=== PATIENT | male | born 1995 | race Caucasian/White ===

== ENCOUNTER 2021-12-03 18:51 | Emergency (ER) | payer BC, SELFPAY ==
--- NOTE | 2021-12-03 18:45 | DI.CT_ITS ---
Exam(s) CT HEAD FACIAL WO EXAM: CT HEAD FACIAL WO CLINICAL HISTORY: Fall, Nasal injury, Near syncope. TECHNIQUE: Imaging Protocol: Axial computed tomography images with coronal and sagittal reformatted images were created and reviewed COMPARISON: No exams were available for comparison FINDINGS: CT Head: Ventricles and Extra axial spaces: Normal in size and morphology for the patient's age. Hemorrhage: None. Cerebral parenchyma: Normal. Midline shift: None. Brainstem/Cerebellum: Normal. Calvarium: Normal. Visualized Paranasal sinuses/Mastoids: Minimal mucous retention cysts right sphenoid and left frontal sinus. Soft Tissues: Unremarkable. CT Face: Facial Bones: Minimal fracture of the right anterior nasal bone. No additional facial fractures. Sinuses and Mastoids: Minimal mucous retention cysts right sphenoid and left frontal sinus. Globes, extraocular muscles, optic nerves and retrobulbar fat: Normal. Upper aerodigestive tract: Normal. Mandible and bilateral temporomandibular joints: Normal. Soft tissues: Normal. IMPRESSION: 1. No acute intracranial process. 2. Right nasal fracture. RADIATION DOSE DELIVERED: 1,993.33mGy.cm Total DLP DATA REPOSITORY: All CT scans at this facility are submitted to the National Radiology Data Registry (NRDR) Dose Index Registry (DIR) with the [employer] (A[employer]). RADIATION OPTIMIZATION: All CT scans at this facility use at least one of these dose optimization te chniques: automated exposure control; mA and/or kV adjustment per patient size (includes targeted exa ms where dose is matched to clinical indication); or iterative reconstruction.
[2021-12-03 18:48] VITALS: BP 116/78; PULSE 67; RESP 14; TEMP 36.3; O2SAT 98
--- NOTE | 2021-12-03 19:00 | W.ED.GENAD ---
Discharge Plan Disposition Patient Disposition: HOME Condition: Stable Discharge Details Clinical Impression: Fracture of nasal bone, Fall (on)(from) sidewalk curb, initial encounter, Head injury Primary Care Provider: Bill Hurtado ED Provider: Emily Snyder Home Meds and New Rx's Prescriptions: Continued loratadine [Claritin] 10 mg tablet 10 mg PO DAILY PRN Label Comments: seasonal zinc 50 mg tablet 50 mg PO DAILY PRN Label Comments: just occassional cyanocobalamin (vitamin B-12) [Vitamin B-12] 1,000 mcg Tablet PO DAILY Discharge Instructions Instructions: Nasal Fracture (ED), Head Injury (ED) Additional Instructions: The CT shows a very small 1-2 mm fracture to the right side of your nose. No evidence of intracranial abnormality or bleeding no other broken bones noted at this time. Please be careful when blowing your nose. You may follow-up with ear nose and throat in 1 to 2 weeks as needed for further evaluation to discuss treatment options if needed. Usually these will heal on their own with no treatment necessary. Please take Tylenol or Ibuprofen with food every 4-6 hours as needed for pain and swelling. Keep your wounds clean and dry you may cover them with a Band-Aid or similar when out and about. Return to the ER for any signs of infection including purulent nasal drainage, sinus pressure, signs of worsening head injury such as confusion, vomiting or concerns. Follow up with primary care provider in 3-5 days. Return to ED sooner if any worsening or concerns. Increase oral fluids. Stand Alone Forms: School Release, Work Release Referrals: Bill Hurtado DO [Primary Care Provider] - Return if symptoms worsen Ousmane Briseno MD [ [facility] STAFF PHYSICIAN] - 1 week Medical Decision Making 26-year-old male presents to the ER via EMS status post a mechanical fall prior to arrival. Patient reports that he was running tripped on a chain fell forward hitting his face, nose, right knee. No loss of conscious however he did have an episode of becoming clammy, nauseous and near syncope with dizziness after the event. Denies any neck pain he is nontender to C-spine with palpation. Discussed risks and benefits of CT imaging, head injury. Patient was given Tylenol, CT head facial without contrast ordered. Wound care ordered. Zofran initially ordered patient declined at this time. CT shows a minimally displaced 1 to 2 mm right side nasal fracture. No other significant acute abnormalities. Patient was given a Tdap booster, wound care was performed and discussion on head injury and strict return instructions and follow-up care. Patient verbalized understanding. Patient was given a work note school note and all of his questions were answered to the best my ability. He is alert oriented remained hemodynamically stable throughout the remainder of his stay. This text was generated using [employer] dictation system, please disregard any oddities of phrase or misspellings. Imaging Data Radiologic Study: Imaging: CT Scan Radiologist's impression: FINDINGS: Orbital cavities: No significant intraorbital abnormality is identified. Bones/joints: There is fracture of the anterior inferior right nasal bone, with minimal depression of 1- 2 mm. No other significant or displaced facial fracture is identified. Paranasal sinuses: The paranasal sinuses are normally developed and well pneumatized. Retention cyst is noted inferiorly medially within the left frontal sinus but there is no other significant sinus opacification, fluid level nor intra sinus hemorrhage. Soft tissues: There is mild pre frontal subcutaneous edema Nasal cavity: There is mild leftward deviation of the nasal septum. There is no evidence of a discrete soft tissue mass or polyp within the nasal cavity. IMPRESSION: Right nasal fracture. No other significant facial fracture identified. Radiologic Study #2: Imaging: CT Scan Radiologist's impression: FINDINGS: Brain: Ventricles, sulci are within normal limits. There is no evidence of acute hemorrhage, mass or shift. There is no evidence of an acute cortical or major vascular territory infarct. No abnormal extraaxial collections are identified. Cerebral ventricles: No significant ventricular enlargement/hydrocephalus. Paranasal sinuses: No significant sinus opacification or fluid level Mastoid air cells: No significant mastoid opacification Bones/joints: There is no acute bony abnormality Soft tissues: Subcutaneous soft tissues are unremarkable IMPRESSION: No acute intracranial findings HPI General Mode of arrival: EMS. Date/Time Provider Initiated Documentation: 12/03/21 18:58. Limitations to Documentation: no limitations. Information obtained by: patient, EMS, RN notes reviewed and old records reviewed. HPI Narrative: 26-year-old male presents to the ER via EMS status post a mechanical fall prior to arrival. Patient reports that he was running tripped on a chain fell forward hitting his face, nose, right knee. No loss of conscious however he did have an episode of becoming clammy, nauseous and near syncope with dizziness after the event. Denies any neck pain he is nontender to C-spine with palpation. No chest abdomen pelvis pain. He does have a small superficial abrasion noted to his right frontal scalp, the bridge of his nose and right knee. Bleeding is controlled without pressure. He has couple of nonsuturable superficial lacerations noted to the bridge of his nose. No intraoral trauma noted. He does have some blood noted to his left nare. No septal hematoma or epistaxis. Last tetanus was approximately within the last 10 years he is unsure of the date. No significant past medical history or medication. Related Data Home Medications Medication Instructions Recorded Confirmed loratadine 10 mg tablet (Claritin) 10 mg PO DAILY PRN 09/24/19 12/03/21 zinc 50 mg tablet 50 mg PO DAILY PRN 09/23/20 12/03/21 cyanocobalamin (vitamin B-12) mcg PO DAILY 12/03/21 1,000 mcg tablet (Vitamin B-12) Allergies Allergy/AdvReac Type Severity Reaction Status Date / Time tree and shrub pollen Allergy Mild sinus Verified 12/03/21 18:55 congestion General Stated Complaint: HeadInjury CAMERON: 3 Review of Systems All systems reviewed & are unremarkable except as noted in HPI and below ENT Ears, Nose, Mouth, and Throat: Reports as per HPI, Denies dental pain, Reports facial pain and Denies neck pain Musculoskeletal Musculoskeletal: Denies neck pain PFSH All Active Problems (Updated 12/03/21 @ 20:21 by Emily Snyder NP) Fracture of nasal bone (Acute) Fall (on)(from) sidewalk curb, initial encounter (Acute) Head injury (Acute) Lipoma (Acute) Allergic rhinitis (Acute) Surgical History History of tonsillectomy (~08/2012) Victor teeth extracted (~2000) Family History Brother Alcohol abuse Depression Maternal Grandfather Alcohol abuse Depression Diabetes Heart disease Hypertension Mother Depression Social History Smoking/Tobacco Use Status: Never Smoking risk assessment performed?: Yes Alcohol Intake: current Alcohol Intake frequency: holidays/special occasions only Alcohol type: beer Drug use: Never Substance use type: does not use Adopted: No Caregiver/Support person: No Foster care: No Household members: none Housing: apartment Communication Needs: None Education Level: college Do you need help understanding health information?: Never current occupation: Teacher, [employer] Pets and animals: No Sexually active: No Do you think of yourself as: straight/heterosexual Current gender identity: male What is your relationship status?: never How often do you talk on the phone with friends or family?: three or more times per week How often do you get together with friends or relatives?: three or more times per week Do you belong to any clubs or organized social groups?: no Panel score (0-1 are the most socially isolated patients): 1 What type of physical activity do you participate in: other Details: Hiking and running Duration: 15-30 minutes/day Frequency: 3-4 times per week Janis/Jewish: Yazidism Seatbelt use: always Helmet use: Yes Drive intox or ride w/intox over the road driver: No Do you feel safe at home: Yes Exam Narrative Exam Narrative: General: Well Developed, Awake and Alert, conversant. Skin: Warm and Dry HEENT: Head: No palpable deformities, Normocephalic, superficial abrasion noted to his right frontal scalp Eyes: Pupils PERRLA, EOM's intact. No periorbital eccymosis or step off Ears: Canal patent. Tympanic membranes are clear . No street's sign, no hemptympanum. Nose/Face: Swelling, ecchymosis and superficial lacerations noted to the bridge of his nose, there is some blood in his left nare facial bones nontender to palpation and stable with manipulation. Mouth/Throat: No intraoral trauma. Teeth and mandible are intact. Neck: No midline tenderness, no step off, no deformity to palpation of C-spine. Trachea midline. Chest: No surface trauma. Nontender without crepitus or deformity. Lungs clear to ausculatation bilaterally. Heart: RRR, no rubs, murmurs or gallop. Abdomen: No abrasions, ecchymosis, or surface trauma. Nondistended. Nontender to palpation no guarding, rebound, or rigidity. Pelvis: Nontender to palpation and stable to compression. Femoral pulses strong and equal Extremities: Superficial abrasion noted to his right anterior knee sensation intact. Peripheral pulses intact and equal. Neuro: ANO x4, GCS 15, cranial nerves II through XII intact. Motor and sensory exam nonfocal. Reflexes are symmetric. Skin Full body images: 1. Superficial abrasion proximately 1 cm x 0.5 cm 2. superficial lacerations, swelling and ecchymosis noted. 3. Superficial laceration, bleeding controlled Course Vital Signs Vital signs: Vital Signs Temperature 36.3 C L 12/03/21 18:48 Pulse 67 12/03/21 18:48 Respiratory Rate 14 12/03/21 18:48 Blood Pressure 116/78 12/03/21 18:48 Pulse Oximetry 98 12/03/21 18:48 Temperature 36.3 C L 12/03/21 18:48 Temperature Source Tympanic 12/03/21 18:48 Pulse 67 12/03/21 18:48 Respiratory Rate 14 12/03/21 18:48 Blood Pressure 116/78 12/03/21 18:48 Blood Pressure Position Sitting 12/03/21 18:48 Pulse Oximetry 98 12/03/21 18:48 Oxygen Delivery Method Room Air 12/03/21 18:48 Oxygen Flow Rate 0 12/03/21 18:48 Pain Level 2 12/03/21 18:48 Comment 12/03/21 18:48
[2021-12-03] MEDS: Acetaminophen 325 MG TAB 650 MG PO (19:05)
--- NOTE | 2021-12-03 20:04 | DI.VRAD_ITS ---
PROCEDURE INFORMATION: Exam: CT Head Without Contrast Exam date and time: 12/03/2021 7:04 PM Age: 26 years old Clinical indication: Injury or trauma; Blunt trauma (contusions or hematomas) and concussion/head injury; Consciousness not specified; Nose; Injury date: 12/03/21; Injury details: Fall, nasal injury TECHNIQUE: Imaging protocol: Computed tomography of the head without contrast. Radiation optimization: All CT scans at this facility use at least one of these dose optimization techniques: automated exposure control; mA and/or kV adjustment per patient size (includes targeted exams where dose is matched to clinical indication); or iterative reconstruction. COMPARISON: No relevant prior studies available. FINDINGS: Brain: Ventricles, sulci are within normal limits. There is no evidence of acute hemorrhage, mass or shift. There is no evidence of an acute cortical or major vascular territory infarct. No abnormal extra-axial collections are identified. Cerebral ventricles: No significant ventricular enlargement/hydrocephalus. Paranasal sinuses: No significant sinus opacification or fluid level Mastoid air cells: No significant mastoid opacification Bones/joints: There is no acute bony abnormality Soft tissues: Subcutaneous soft tissues are unremarkable IMPRESSION: No acute intracranial findings PROCEDURE INFORMATION: Exam: CT Maxillofacial Without Contrast Exam date and time: 12/03/2021 7:04 PM Age: 26 years old Clinical indication: Injury or trauma; Blunt trauma (contusions or hematomas) and concussion/head injury; Consciousness not specified; Nose; Injury date: 12/03/21; Injury details: Fall, nasal injury TECHNIQUE: Imaging protocol: Computed tomography of the of the face without contrast. Radiation optimization: All CT scans at this facility use at least one of these dose optimization techniques: automated exposure control; mA and/or kV adjustment per patient size (includes targeted exams where dose is matched to clinical indication); or iterative reconstruction. COMPARISON: No relevant prior studies available. FINDINGS: Orbital cavities: No significant intraorbital abnormality is identified. Bones/joints: There is fracture of the anterior inferior right nasal bone, with minimal depression of 1-2 mm. No other significant or displaced facial fracture is identified. Paranasal sinuses: The paranasal sinuses are normally developed and well pneumatized. Retention cyst is noted inferiorly medially within the left frontal sinus but there is no other significant sinus opacification, fluid level nor intra sinus hemorrhage. Soft tissues: There is mild pre frontal subcutaneous edema Nasal cavity: There is mild leftward deviation of the nasal septum. There is no evidence of a discrete soft tissue mass or polyp within the nasal cavity. IMPRESSION: Right nasal fracture. No other significant facial fracture identified. Dictated and Authenticated by: Marybeth Stroud MD. Ordering:RISHI Diaz MD
[2021-12-03 20:53] VITALS: BP 119/80; PULSE 74; RESP 16; TEMP 36.9; O2SAT 98
== END 2021-12-03 20:43 | disposition home or self-care (01) ==
LOC: ER 20:47
PROVIDERS: Emergency Provider Registered Nurse Emergency; PCP Family Medicine
DX: S02.2XXA Fracture of nasal bones, initial encounter for closed fracture (principal); S09.90XA Unspecified injury of head, initial encounter; S81.011A Laceration without foreign body, right knee, initial encounter; Z23 Encounter for immunization; W01.0XXA Fall on same level from slipping, tripping and stumbling without subsequent striking against object, initial encounter; Y93.02 Activity, running; Y92.480 Sidewalk as the place of occurrence of the external cause
CPT/HCPCS: 90471; 99284; 70450; 70486